=== PATIENT | female | born 1980 | race Caucasian/White ===

== ENCOUNTER 2022-06-10 10:38 | Day surgery (SDC) | payer SELFPAY ==
[2022-05-15 11:03] VITALS: BMI 19.5
[2022-06-10] MEDS ORDERED: BACITRACIN 15 GM TUBE TOPICAL OINTMENT ONE (11:36)
[2022-06-10] MEDS ORDERED: EPINEPHrine/PF 1 MG/1 ML (1:1,000) AMPULE ONE (11:36)
[2022-06-10] MEDS ORDERED: LIDOCAINE HCL 1%, 10 MG/ML (20ML VIAL) ONE (11:36)
[2022-06-10] MEDS ORDERED: BUPIVACAINE HCL/PF 2.5 MG/ML - 30 ML VIAL IJ ONE (11:36)
[2022-06-10] MEDS ORDERED: BUPIVACAINE HCL/PF 0.25% (2.5MG/ML) 10 ML VIAL ONE ×2 (12:26→17:35)
[2022-06-10] MEDS ORDERED: SUCCINYLCHOLINE CHLORIDE 200 MG/10 ML SYRINGE ONE (12:46)
[2022-06-10] MEDS ORDERED: PROPOFOL 20 ML ONE ×11 (12:46→18:40)
[2022-06-10] MEDS ORDERED: ONDANSETRON 4 MG/2 ML VIAL ONE ×2 (12:46→17:40)
[2022-06-10] MEDS ORDERED: DEXAMETHASONE SOD PHOSPHATE 4 MG/1 ML VIAL ONE ×2 (12:46→17:40)
[2022-06-10] MEDS ORDERED: MIDAZOLAM HCL 2 MG/2 ML SINGLE DOSE VIAL ONE (12:46)
[2022-06-10] MEDS ORDERED: ceFAZolin SODIUM 1 GM VIAL ONE (12:47)
[2022-06-10] MEDS ORDERED: ROCURONIUM BROMIDE 50 MG/5 ML SYRINGE ONE (12:50)
[2022-06-10] MEDS ORDERED: ACETAMINOPHEN 325 MG TABLET (FP) PO PRN (13:07)
[2022-06-10] MEDS ORDERED: ZOLPIDEM TARTRATE 5 MG TABLET PO PRN (13:07)
[2022-06-10] MEDS ORDERED: ONDANSETRON 4 MG/2 ML VIAL IVPUSH PRN (13:07)
[2022-06-10] MEDS ORDERED: DOCUSATE SODIUM 100 MG CAPSULE (FP) PO PRN (13:08)
[2022-06-10] MEDS ORDERED: HYDROmorphone HCl 2 MG/ML VIAL IVPB PRN (13:09)
[2022-06-10] MEDS ORDERED: LACTATED RINGERS SOLUTION 1,000 ML IV SCH (13:15)
[2022-06-10] MEDS ORDERED: HYDROmorphone HCL/PF 1 MG/ML VIAL ONE ×2 (15:10→16:47)
[2022-06-10] MEDS ORDERED: BUPIVACAINE HCL/PF 0.25% (2.5MG/ML) 10 ML VIAL IJ ONE ×2 (16:31→19:14)
[2022-06-10] MEDS ORDERED: PROMETHAZINE HCL 25 MG/1 ML VIAL IVPUSH PRN (20:00)
[2022-06-10] MEDS ORDERED: CEFAZOLIN 1 GM/50 ML IVPB ONE (20:23)
[2022-06-10] MEDS ORDERED: ceFAZolin SODIUM 1 GM VIAL IVPB ONE (20:30)
[2022-06-11] MEDS: oxyCODONE HCL 5 MG TABLET PO PRN ×3 (02:21→08:42)
[2022-06-11] MEDS: CEFAZOLIN 1 GM in DEXTROSE 5%-WATER - 50 ML IVPB SCH ×3 (02:23→09:34)
[2022-06-11] MEDS ORDERED: oxyCODONE HCL 5 MG TABLET PO PRN (14:12)
[2022-06-11] MEDS ORDERED: ACETAMINOPHEN 325 MG TABLET (FP) PO PRN (14:12)
[2022-06-11 15:00] VITALS: BP 93/52; PULSE 70; RESP 18; TEMP 98.9
== END 2022-06-11 17:15 | disposition home or self-care (01) ==
LOC: FASU 10:38 → FASUSAT 10:38 → FM/S 21:06 → FASUSAT 06-11 17:15
PROVIDERS: ATTEND Surgery
CPT/HCPCS: 81025; 94760